=== PATIENT | male | born 1940 | race Two or more races ===

== ENCOUNTER 2017-08-29 00:25 | Inpatient (IN) | payer MEDICARE, BC ==
[~2017-08-29] VITALS: Ht 185.4 cm; Wt 83.0 kg
--- NOTE | 2017-08-29 00:45 | NUR ---
PT BIB [facility] FROM [facility] WITH A C/O FEVER W/ NAUSEA AND VOMITTING. PT IS AA&O X4. PT HAS A TRACH- PORTEX 7. PT ALSO HAS A G-TUBE. PT IS WEARING A DIAPER. NO SKIN BREAKDOWN NOTED. PT IS ON THE MONITOR AND CONTINUOUS PULSE OX. 18G IV STARTED ON LFA. BLOOD AND BLOOD CULTURES X 2 DRAWN. SUPERVISOR SHOW OPERATIONS IS AT THE BEDSIDE. PT IS ON THE MONITOR AND CONTINUOUS PULSE OX.
--- NOTE | 2017-08-29 00:47 | NUR ---
EKG IN PROGRESS AT THE BEDSIDE.
--- NOTE | 2017-08-29 00:48 | NUR ---
DR. PIERCE IS AT THE BEDSIDE.
[2017-08-29] MEDS ORDERED: ONDANSETRON HCL/PF 4 MG/2 ML VIAL ONE (00:51)
[2017-08-29] MEDS ORDERED: ACETAMINOPHEN 650 MG/SUPP.RECT RC ONE ×2 (00:52→01:00)
[2017-08-29] MEDS ORDERED: ONDANSETRON HCL/PF 4 MG/2 ML VIAL IVP ONE (01:00)
[2017-08-29] MEDS ORDERED: IV NS 0.9% 1,000 ML BAG IV ONE (01:00)
[2017-08-29] MEDS ORDERED: LIDOCAINE 2% JEL UROJET 10 ML MM ONE (01:00)
[2017-08-29] MEDS ORDERED: ALBU2.5V13 IH (01:06)
[2017-08-29] MEDS ORDERED: IPRA0.2S49 NEB (01:06)
[2017-08-29 01:11] LABS: TROPONIN I 0.145 ng/mL (0.00-0.056)
--- NOTE | 2017-08-29 01:12 | NUR ---
XRAY AT BEDSIDE
[2017-08-29 01:13] LABS: HEMATOCRIT 33 % (39-51); HEMOGLOBIN 11.2 g/dL (13.5-17.5); RED BLOOD CELL COUNT(AUTO) 3.94 MIL/uL (4.5-6.0); WHITE BLOOD COUNT (AUTO) 11.9 K/uL (4.3-11.0)
[2017-08-29 01:14] LABS: BASOPHILS % (AUTO) 0.2 % (0.0-2.0); EOSINOPHILS % (AUTO) 0.1 % (0.0-6.0); INR 0.96 (0.87-1.13); LYMPHOCYTES % (AUTO) 8.4 % (20.0-44.0); MEAN CORPUSCULAR HEMOGLOBIN 28 PG (26.0-33.0); MEAN CORPUSCULAR HGB CONC 34 g/dl (31.0-36.0); MEAN CORPUSCULAR VOLUME 84 fL (80-96); NEUTROPHILS % (AUTO) 83.3 % (43.0-81.0); PLATELET COUNT (AUTO) 235 /CMM (150-450); RDW COEFFICIENT OF VARIATION 18.2 (11.5-15.0)
[2017-08-29 01:18] LABS: ALANINE AMINOTRANSFERASE 22 U/L (12-78); ALBUMIN 2.4 g/dL (3.4-5.0); ALKALINE PHOSPHATASE 70 U/L (46-116); ASPARTATE AMINOTRANSFERASE 11 U/L (15-37); BILIRUBIN,DIRECT 0.3 mg/dL (0.0-0.2); BILIRUBIN,TOTAL 1.1 mg/dL (0.2-1.0); CALCIUM, SERUM 8.3 mg/dL (8.5-10.1); CARBON DIOXIDE 27 mmol/L (21-32); CHLORIDE 99 mmol/L (98-107); CREATININE 0.9 mg/dL (0.6-1.3); GLUCOSE 101 mg/dL (74-106); POTASSIUM 3.4 mmol/L (3.5-5.1); SODIUM SERUM 135 mmol/L (136-145); UREA NITROGEN, BLOOD 12 mg/dL (7-18)
[2017-08-29] MEDS ORDERED: DOCU-141 GT (01:23)
[2017-08-29] MEDS ORDERED: DOXA4TAB3 PO (01:23)
[2017-08-29] MEDS ORDERED: LEVE500T20 GT (01:23)
[2017-08-29] MEDS ORDERED: ALEN70TA3 GT (01:23)
[2017-08-29] MEDS ORDERED: FOLI1TAB16 GT (01:23)
[2017-08-29] MEDS ORDERED: ATOR40TA GT (01:23)
[2017-08-29] MEDS ORDERED: SULF473O3 GT (01:23)
[2017-08-29] MEDS ORDERED: LEVO25TA9 GT (01:23)
[2017-08-29] MEDS ORDERED: TAMS-12 GT (01:23)
[2017-08-29] MEDS ORDERED: CRAN3875 GT (01:23)
[2017-08-29] MEDS ORDERED: TYL2T GT (01:23)
[2017-08-29] MEDS ORDERED: THIA100T13 GT (01:23)
[2017-08-29] MEDS ORDERED: ENOX40DI SUBCUT (01:23)
[2017-08-29] MEDS ORDERED: LACO200T2 GT (01:23)
[2017-08-29] MEDS ORDERED: ACET-2605 GT (01:23)
[2017-08-29] MEDS ORDERED: MULT-213 GT (01:23)
[2017-08-29] MEDS ORDERED: ASCO500C18 GT (01:23)
[2017-08-29] MEDS ORDERED: CRAN425C6 GT (01:23)
[2017-08-29] MEDS ORDERED: OMEP20TA5 GT (01:23)
[2017-08-29] MEDS ORDERED: CALC500T3 GT (01:23)
[2017-08-29] MEDS ORDERED: PRED20TA GT (01:23)
--- NOTE | 2017-08-29 01:40 | NUR ---
LAB CALLED FOR P/U
--- NOTE | 2017-08-29 01:53 | NUR ---
PT RESTING COMFORTABLY. VSS. STABLE CONDTION. NAD
[2017-08-29 02:28] LABS: APPEARANCE,URINE CLOUDY (CLEAR); BILIRUBIN,URINE NEGATIVE (NEGATIVE); BLOOD, URINE 2+ Ery/uL (NEGATIVE); COLOR,URINE YELLOW (YELLOW); KETONES,URINE NEGATIVE (NEGATIVE); LEUKOCYTE ESTERASE ,URINE 3+ (NEGATIVE); NITRITE, URINE NEGATIVE (NEGATIVE); PROTEIN,URINE TRACE mg/dl (NEGATIVE); UGLUCOSE NEGATIVE (NEGATIVE); UROBILINOGEN,URINE 0.2 EU/dL (0.2)
[2017-08-29] MEDS ORDERED: LEVOFLOXACIN 750 MG /D5W 150ML 150 ML IV ONE (02:28)
[2017-08-29] MEDS ORDERED: LEVOFLOXACIN 750 MG /D5W 150ML PIGGYBACK IV ONE (02:30)
[2017-08-29 02:37] LABS: BACTERIA,URINE Many /HPF (None Seen); SQUAMOUS EPITHELIAL CELL,UR Rare /HPF (None Seen); WBC,URINE TOO NUMEROUS TO COUN /HPF (0-3)
[2017-08-29] MEDS ORDERED: NUT.237L30 GT (03:09)
--- NOTE | 2017-08-29 03:15 | NUR ---
RN NOTES RECEIVED PATIENT'S REPORT FROM ER NURSE MISA. GOT THE PT ON GURNEY, PT IS A/O X1, CONFUSED, ON T-PIECE 5L COOL AEROSOL WITH SPO2 OF 100%, B/P- 133/56, HR-58, T-98.0. G TUBE IN PLACE, PATIENT, ASPIRATED, AUSCULTATED AND FLASHED AND GLUCERNA 1.2 STARTED @ 50ML/HR.ALL SAFETY MEASURES ARE IMPLEMENTED, BED IN LOW, LOCKED POSITION, CALL LIGHT IN REACH. WILL CONT. TO MONITOR.
[2017-08-29 04:00] VITALS: BP 133/56
[2017-08-29] MEDS ORDERED: GLUCERNA 1.2 1,000 ML BOTTLE NG PRN ×2 (04:00→10:00)
[2017-08-29] MEDS ORDERED: DOSE PER PHARMACY (MD SPECIFY MEDICATION) 1 EA XX PRN (04:00)
--- NOTE | 2017-08-29 07:00 | NUR ---
RN NOTES RECEIVED PT ON BED, A/Ox1, TRACH DEPENDENT, ON TELE SR HR IN 60'S, TOLERATING TF AT 50CC/HR WELL , NO RESIDUAL NOTED, L FA IV SITE G 18 CDI, SR UP x3, CALL LIGHT WITHIN EASY REACH, BED LOCKED AND IN LOWEST POSITION, CONTINUE TO MONITOR .
[2017-08-29 07:19] LABS: BASOPHILS % (AUTO) 0.3 % (0.0-2.0); EOSINOPHILS % (AUTO) 0.8 % (0.0-6.0); HEMATOCRIT 37 % (39-51); HEMOGLOBIN 12.4 g/dL (13.5-17.5); LYMPHOCYTES # (AUTO) 1.2 /CMM (0.8-4.8); LYMPHOCYTES % (AUTO) 12.5 % (20.0-44.0); MEAN CORPUSCULAR HEMOGLOBIN 28 PG (26.0-33.0); MEAN CORPUSCULAR HGB CONC 34 g/dl (31.0-36.0); MEAN CORPUSCULAR VOLUME 83 fL (80-96); MONOCYTES # (AUTO) 0.3 /CMM (0.1-1.30); MONOCYTES % (AUTO) 3.7 % (2.0-12.0); NEUTROPHILS # (AUTO) 7.8 /CMM (1.8-8.9); NEUTROPHILS % (AUTO) 82.7 % (43.0-81.0); PLATELET COUNT (AUTO) 191 /CMM (150-450); RDW COEFFICIENT OF VARIATION 16.6 (11.5-15.0); RED BLOOD CELL COUNT(AUTO) 4.44 MIL/uL (4.5-6.0); WHITE BLOOD COUNT (AUTO) 9.4 K/uL (4.3-11.0)
[2017-08-29 07:20] LABS: CALCIUM, SERUM 8.7 mg/dL (8.5-10.1); CARBON DIOXIDE 24 mmol/L (21-32); CHLORIDE 103 mmol/L (98-107); CREATININE 0.9 mg/dL (0.6-1.3); GLUCOSE 91 mg/dL (74-106); POTASSIUM 3.7 mmol/L (3.5-5.1); SODIUM SERUM 137 mmol/L (136-145); UREA NITROGEN, BLOOD 10 mg/dL (7-18)
[2017-08-29 07:59] LABS: TROPONIN I 0.125 ng/mL (0.00-0.056)
[2017-08-29 08:00] VITALS: BP 120/55
[2017-08-29] MEDS ORDERED: ACETAMINOPHEN 650 MG/20.3 ML UDC GT PRN (08:00)
[2017-08-29] MEDS ORDERED: ALBUTEROL FS 2.5 MG/0.5 ML VIAL.NEB IH PRN (08:00)
[2017-08-29] MEDS ORDERED: ALENDRONATE 70 MG TABLET GT SCH (08:00)
[2017-08-29] MEDS ORDERED: IPRATROPIUM NEB FS 0.5 MG/2.5 ML AMPUL.NEB NEB PRN (08:00)
[2017-08-29] MEDS: FOLIC ACID 1 MG TABLET GT SCH (08:41)
[2017-08-29] MEDS: DOCUSATE SODIUM LIQ 100 MG/10 ML UDC GT SCH ×2 (08:41→16:14)
[2017-08-29] MEDS: CALCIUM CARBONATE (1250) 500 MG TABLET GT SCH (08:42)
[2017-08-29] MEDS: predniSONE 10 MG TABLET GT SCH (08:42)
[2017-08-29] MEDS: LEVOTHYROXINE SODIUM 25 MCG TABLET GT SCH (08:42)
[2017-08-29] MEDS: PANTOPRAZOLE 40 MG/PACK PACK GT SCH (08:42)
[2017-08-29] MEDS: LEVETIRACETAM SOL (5 ML) 100 MG/ML UDC GT SCH ×2 (08:42→20:15)
[2017-08-29] MEDS: ASCORBIC ACID 500 MG TABLET GT SCH ×2 (08:43→16:14)
[2017-08-29] MEDS: LACOSAMIDE 50 MG TABLET GT SCH ×2 (08:43→20:15)
[2017-08-29] MEDS: DOXAZOSIN MESYLATE (4 MG) 4 MG TABLET GT SCH (08:43)
[2017-08-29] MEDS: ENOXAPARIN SODIUM 40 MG/0.4 ML DISP.SYRIN SQ SCH (08:46)
[2017-08-29] MEDS: THIAMINE HCL 100 MG TABLET GT SCH (08:48)
[2017-08-29] MEDS ORDERED: Medication Not On Formulary EA (Cranberry Extract (Cranberry) 425 MG) GT SCH (09:00)
[2017-08-29] MEDS ORDERED: Medication Not On Formulary EA (Cran/Vitc/Mannose/Inulin/Brom (Uti-Stat Liquid) 30 ML) GT SCH (09:00)
[2017-08-29] MEDS ORDERED: GLUCERNA 1.2 1,000 ML BOTTLE GT SCH (09:00)
[2017-08-29] MEDS ORDERED: MULTIVIT, IRON, MIN NO. 8, FA 1 TAB PO SCH (09:00)
--- NOTE | 2017-08-29 09:05 | NUR ---
WOUND CARE CONSULT: PT INCONTINENT OF URINE. RECOMMENDATIONS MADE FOR SKIN PROTECTION AND DISCUSSED WITH NURSING STAFF. WILL SEE PRN. GIFFORD IN AGREEMENT WITH PLAN OF CARE. Addendum: 08/29/17 at 0906 by FORD COY WNDNU Amended: Links added.
[2017-08-29] MEDS ORDERED: Z GUARD REMEDY 2 OZ OINT TP PRN (09:30)
[2017-08-29] MEDS ORDERED: GLUCERNA 1.2 1,000 ML BOTTLE GT PRN (10:12)
[2017-08-29 11:21] LABS: LYMPHOCYTES % (MANUAL) 14 % (16-48); MONOCYTES % (MANUAL) 3 % (0-11.0); NEUTROPHILS % (MANUAL) 83 (42-76)
[2017-08-29] MEDS: Z GUARD REMEDY 2 OZ OINT TP SCH (11:57)
[2017-08-29 12:00] VITALS: BP_SYST 120; BP_SYST 133; BP_DIAS 46; BP_DIAS 55
[2017-08-29] MEDS: CARVEDILOL 3.125 MG TABLET PO SCH ×2 (12:00→20:15)
[2017-08-29] MEDS ORDERED: ASPIRIN 81 MG TAB.CHEW PO SCH (12:00)
[2017-08-29 16:00] VITALS: BP 114/55
--- NOTE | 2017-08-29 17:17 | NUR ---
PT PLACED ON TRACH COLLAR W/ COOL AEROSOL SETUP IN AM. ORDERS FOR TRACH CAP AND PMV DURING MEAL RECEIVED. NO RESP DISTRESS NOTED, PT AWAKE, SOMEWHAT CONFUSED, SX'ED PRN, VITAL STABLE
--- NOTE | 2017-08-29 18:33 | NUR ---
RN NOTES GT CLAMPED , PT TOLERATING REGULAR FOOD WELL. L FA IV SITE CDI, SR UP x2, CALL LIGHT WITHIN EASY REACH, BED LOCKED AND IN LOWEST POSITION, WILL ENDOSE TO MACHINE HOSE CUTTER NURSE FOR URIEL .
[2017-08-29 20:00] VITALS: BP 117/48
--- NOTE | 2017-08-29 20:00 | NUR ---
RN INITIAL NOTES RECEIVED PT AWAKE ON BED, A/O X3, ON 3L NASAL CANNULA SATURATING WELL, NO S/S OF RESP DISTRESS. PT HAS A TRACH PORTEX 7, CAPPED, SITE IS CDI. CURRENTLY SR ON THE MONITOR, HR 60'S. ON DIAPERS ONLY. PEG IS CLAMPED, INTACT. LEFT FOREARM 18G, FLUSHED AND PATENT, NO S/S OF INFILTRATION/INFECTION, DRESSING CDI. BED LOW AND LOCKED, SIDERAILS UP, CALL LIGHT WITHIN REACH. WILL MONITOR
--- NOTE | 2017-08-29 20:10 | NUR ---
RECEIVED PT TRACHED CAP PTX 7. PT IS AWAKE AND ALERT. PT ON COOL AEROSOL, SWITCHED TO 3L NC. PT COMPLAINING ABOUT THE AEROSOL NOISE. RN NOTIFIED. NO SOB. WILL CONTINUE TO MONITOR.
[2017-08-29] MEDS: ATORVASTATIN 40 MG TABLET GT SCH (21:22)
[2017-08-29] MEDS: LEVOFLOXACIN 750 MG /D5W 150ML 150 ML IV SCH (21:22)
[2017-08-29] MEDS ORDERED: TAMSULOSIN 0.4 MG CAP.SR.24H GT SCH (22:00)
[2017-08-29] MEDS ORDERED: DOXAZOSIN MESYLATE (1 MG) 1 MG TABLET GT SCH (22:00)
[2017-08-30] VITALS: BP 117/55
[2017-08-30 04:00] VITALS: BP 128/58
--- NOTE | 2017-08-30 06:30 | NUR ---
RN CLOSING NOTES PT REMAINS STABLE OF THE MOMENT. ALL DUE MEDS GIVEN, AM CARE PROVIDED. WILL ENDORSE URIEL TO AM RN
--- NOTE | 2017-08-30 07:15 | NUR ---
TELE/RN INITIAL NOTES RECEIVED PT IN BED, A/OX2. NO C/O PAIN AT THIS TIME. ON 3L O2 VIA NC. TOLERATING WELL. NO SOB NOTED. WITH INTACT TRACH PORTEX #7. SR ON TELEMONITOR. AFEBRILE. WITH INTACT CONDOM CATH. LFA SL INTACT. WITH NO SIGNS OF INFECTION NOTED. HOB ELEVATED. SAFETY MEASURES AND ASPIRATION PRECAUTION IN PLACED. CALL LIGHT WITHIN REACH. WILL CONT TO MONITOR Addendum: 08/30/17 at 1026 by BJORN OSBORN RN ADD: GT CLAMPED, INTACT, PATENT AND IN PLACED. NO RESIDUE NOTED.
[2017-08-30 08:00] VITALS: BP 127/68
[2017-08-30] MEDS: ALENDRONATE 10 MG TABLET GT SCH (08:21)
[2017-08-30] MEDS: DOCUSATE SODIUM LIQ 100 MG/10 ML UDC GT SCH ×2 (08:53→16:54)
[2017-08-30] MEDS: THIAMINE HCL 100 MG TABLET GT SCH (08:53)
[2017-08-30] MEDS: CALCIUM CARBONATE (1250) 500 MG TABLET GT SCH (08:53)
[2017-08-30] MEDS: PANTOPRAZOLE 40 MG/PACK PACK GT SCH (08:53)
[2017-08-30] MEDS: LEVETIRACETAM SOL (5 ML) 100 MG/ML UDC GT SCH ×2 (08:53→20:32)
[2017-08-30] MEDS: FOLIC ACID 1 MG TABLET GT SCH (08:54)
[2017-08-30] MEDS: predniSONE 10 MG TABLET GT SCH (08:54)
[2017-08-30] MEDS: LEVOTHYROXINE SODIUM 25 MCG TABLET GT SCH (08:54)
[2017-08-30] MEDS: ASCORBIC ACID 500 MG TABLET GT SCH ×2 (08:54→16:54)
[2017-08-30] MEDS: ASPIRIN 81 MG TAB.CHEW GT SCH (08:54)
[2017-08-30] MEDS: MULTIVIT, IRON, MIN NO. 8, FA 1 TAB GT SCH (08:54)
[2017-08-30] MEDS: LACOSAMIDE 50 MG TABLET GT SCH ×2 (08:55→20:32)
[2017-08-30] MEDS: CARVEDILOL 3.125 MG TABLET PO SCH ×2 (08:55→20:33)
[2017-08-30] MEDS: Z GUARD REMEDY 2 OZ OINT TP SCH (08:56)
[2017-08-30] MEDS: DOXAZOSIN MESYLATE (4 MG) 4 MG TABLET GT SCH (08:56)
[2017-08-30] MEDS: ENOXAPARIN SODIUM 40 MG/0.4 ML DISP.SYRIN SQ SCH (08:59)
[2017-08-30] MEDS ORDERED: SULFAMEHOX/TRIMETH 200-40MG/ 5 ML UDC GT SCH (09:00)
[2017-08-30 12:00] VITALS: BP 121/55
[2017-08-30 16:00] VITALS: BP 111/59
--- NOTE | 2017-08-30 19:05 | NUR ---
RN NOTES PT REMAINED IN STABLE CONDITION. NO ACUTE DISTRESS NOTED THROUGHOUT SHIFT. SAFETY MEASURES AND ASPIRATION PRECAUTION OBSERVED AT ALL TIMES. ALL NEEDS ANTICIPATED. ENDORSED TO PM SHIFT NURSE FOR URIEL
[2017-08-30 20:00] VITALS: BP 114/55
[2017-08-30] MEDS: LEVOFLOXACIN 750 MG /D5W 150ML 150 ML IV SCH (21:12)
[2017-08-30] MEDS: ATORVASTATIN 40 MG TABLET GT SCH (21:12)
[2017-08-31 04:00] VITALS: BP 128/66
--- NOTE | 2017-08-31 07:16 | NUR ---
MS RN NOTES: RECEIVED PT ON BED ASLEEP WITH NO APPARENT DISTRESS NOTED. NO COMPLAINTS OF PAIN OR DISCOMFORT. BREATHING EVEN AND UNLABORED WITH NORMAL RESPIRATIONS. GT CLAMPED, INTACT AND PATENT. NO RESIDUE NOTED AT THIS TIME. KEPT CLEAN, DRY AND COMFORTABLE. SIDE RAILS UP X2. BED ALARM ON. BED LOCKED AND IN LOWEST POSITION. CALL LIGHT WITHIN REACH. WILL CONTINUE TO MONITOR PT.
[2017-08-31 08:00] VITALS: BP 133/53
[2017-08-31] MEDS: THIAMINE HCL 100 MG TABLET GT SCH (08:27)
[2017-08-31] MEDS: LEVETIRACETAM SOL (5 ML) 100 MG/ML UDC GT SCH ×2 (08:27→21:47)
[2017-08-31] MEDS: predniSONE 10 MG TABLET GT SCH (08:27)
[2017-08-31] MEDS: ASCORBIC ACID 500 MG TABLET GT SCH ×2 (08:27→16:25)
[2017-08-31] MEDS: PANTOPRAZOLE 40 MG/PACK PACK GT SCH (08:27)
[2017-08-31] MEDS: CALCIUM CARBONATE (1250) 500 MG TABLET GT SCH (08:28)
[2017-08-31] MEDS: DOCUSATE SODIUM LIQ 100 MG/10 ML UDC GT SCH ×2 (08:28→16:25)
[2017-08-31] MEDS: DOXAZOSIN MESYLATE (4 MG) 4 MG TABLET GT SCH (08:28)
[2017-08-31] MEDS: ASPIRIN 81 MG TAB.CHEW GT SCH (08:28)
[2017-08-31] MEDS: LACOSAMIDE 50 MG TABLET GT SCH ×2 (08:28→21:47)
[2017-08-31] MEDS: ALENDRONATE 10 MG TABLET GT SCH (08:28)
[2017-08-31] MEDS: MULTIVIT, IRON, MIN NO. 8, FA 1 TAB GT SCH (08:28)
[2017-08-31] MEDS: CARVEDILOL 3.125 MG TABLET PO SCH ×2 (08:30→21:48)
[2017-08-31] MEDS: FOLIC ACID 1 MG TABLET GT SCH (08:30)
[2017-08-31] MEDS: LEVOTHYROXINE SODIUM 25 MCG TABLET GT SCH (08:35)
[2017-08-31] MEDS: ENOXAPARIN SODIUM 40 MG/0.4 ML DISP.SYRIN SQ SCH (08:46)
[2017-08-31] MEDS: Z GUARD REMEDY 2 OZ OINT TP SCH (08:53)
--- NOTE | 2017-08-31 13:55 | NUR ---
MS RN NOTES: RECEIVED A CALL FROM PHARMACY THAT PATIENT IS RESISTANT TO THE ATB THAT HE WAS RECEIVING. [employer] ATTENDANT DR. FERRIS PAGED, STILL AWAITING FOR CALL BACK.
[2017-08-31] MEDS ORDERED: DOSING PER PHARMACY-AMIKACI IV XX PRN (14:00)
[2017-08-31 14:47] LABS: CALCIUM, SERUM 8.2 mg/dL (8.5-10.1); CARBON DIOXIDE 25 mmol/L (21-32); CHLORIDE 101 mmol/L (98-107); CREATININE 0.9 mg/dL (0.6-1.3); GLUCOSE 245 mg/dL (74-106); POTASSIUM 4.1 mmol/L (3.5-5.1); SODIUM SERUM 134 mmol/L (136-145); UREA NITROGEN, BLOOD 11 mg/dL (7-18)
[2017-08-31] MEDS ORDERED: FEE PK DOSING 1 MIN EA MC ONE (15:49)
[2017-08-31 16:00] VITALS: BP 124/55
[2017-08-31] MEDS: AMIKACIN 400 MG in IV D5W 100 ML IV SCH (17:33)
--- NOTE | 2017-08-31 19:30 | NUR ---
MS RN NOTES: PATIENT ON BED ALERT AND AWAKE, NO ACUTE DISTRESS NOTED. NO COMPLAINTS OF PAIN OR DISCOMFORT AT THIS TIME. ON 3LPM NC, NO SOB NOTED. SATURATING WELL. GT CLAMPED, NO RESIDUAL NOTED. CALL LIGHT PLACED WITHIN REACH. KEPT CLEAN, DRY AND COMFORTABLE. WILL ENDORSE TO CALENDERER FOR URIEL.
[2017-08-31 20:00] VITALS: BP 141/57
--- NOTE | 2017-08-31 20:00 | NUR ---
RN NOTES RECEIVED PATIENT AWAKE IN BED WITH NO DISTRESS NOTED. BREATHING EVEN AND UNLABORED. ON 02 VIA NASAL CANNULA AT 3LPM, TOLERATING WELL. VITAL SIGNS WNL. ALERT AND ORIENTED. VERBALLY ABLE TO COMMUNICATE NEEDS. NO COMPLAINT OF PAIN OR DISCOMFORT. WILL CONTINUE TO MONITOR.
[2017-08-31] MEDS: ATORVASTATIN 40 MG TABLET GT SCH (21:47)
[2017-09-01 04:00] VITALS: BP 119/64
[2017-09-01] MEDS: AMIKACIN 400 MG in IV D5W 100 ML IV SCH ×2 (06:30→17:00)
--- NOTE | 2017-09-01 07:10 | NUR ---
MS/RN INITIAL NOTES RECEIVED PT IN BED, A/O X2, ON 3L O2 VIA NC, TOLERATING WELL, NO SOB NOTED. WITH CAPPED TRACH PORTEX 7. WITH INTACT LFA G18 SL, NO SIGNS OF INFECTION NOTED. NO C/O PAIN AT THIS TIME. GT CLAMPED AND IN PLACED. SAFETY MEASURES AND ASPIRATION PRECAUTION IN PLACED. CALL LIGHT WITHIN REACH. WILL CONT TO MONITOR.
[2017-09-01 07:14] LABS: CALCIUM, SERUM 8.7 mg/dL (8.5-10.1); CARBON DIOXIDE 25 mmol/L (21-32); CHLORIDE 105 mmol/L (98-107); CREATININE 0.7 mg/dL (0.6-1.3); GLUCOSE 101 mg/dL (74-106); POTASSIUM 3.9 mmol/L (3.5-5.1); SODIUM SERUM 139 mmol/L (136-145); UREA NITROGEN, BLOOD 12 mg/dL (7-18)
--- NOTE | 2017-09-01 07:21 | NUR ---
RN CLOSING NOTES NO SIGNIFICANT CHANGE OF CONDITION. NO DISTRESS NOTED. NO COMPLAINT OF PAIN OR DISCOMFORT. VITAL SIGNS WNL. KEPT CLEAN AND DRY. WILL ENDORSE TO AM SHIFT FOR CONTINUITY OF CARE.
[2017-09-01] MEDS: ALENDRONATE 10 MG TABLET GT SCH (07:50)
[2017-09-01 08:00] VITALS: BP 149/60
[2017-09-01] MEDS: LEVETIRACETAM SOL (5 ML) 100 MG/ML UDC GT SCH ×2 (08:56→20:53)
[2017-09-01] MEDS: DOXAZOSIN MESYLATE (4 MG) 4 MG TABLET GT SCH (08:56)
[2017-09-01] MEDS: DOCUSATE SODIUM LIQ 100 MG/10 ML UDC GT SCH ×2 (08:57→16:40)
[2017-09-01] MEDS: CARVEDILOL 3.125 MG TABLET PO SCH ×2 (08:57→20:52)
[2017-09-01] MEDS: PANTOPRAZOLE 40 MG/PACK PACK GT SCH (08:57)
[2017-09-01] MEDS: LEVOTHYROXINE SODIUM 25 MCG TABLET GT SCH (08:58)
[2017-09-01] MEDS: MULTIVIT, IRON, MIN NO. 8, FA 1 TAB GT SCH (08:58)
[2017-09-01] MEDS: THIAMINE HCL 100 MG TABLET GT SCH (08:58)
[2017-09-01] MEDS: ASPIRIN 81 MG TAB.CHEW GT SCH (08:58)
[2017-09-01] MEDS: predniSONE 10 MG TABLET GT SCH (08:58)
[2017-09-01] MEDS: ASCORBIC ACID 500 MG TABLET GT SCH ×2 (08:58→16:40)
[2017-09-01] MEDS: LACOSAMIDE 50 MG TABLET GT SCH ×2 (08:58→20:53)
[2017-09-01] MEDS: FOLIC ACID 1 MG TABLET GT SCH (08:58)
[2017-09-01] MEDS: ENOXAPARIN SODIUM 40 MG/0.4 ML DISP.SYRIN SQ SCH (08:59)
[2017-09-01] MEDS: Z GUARD REMEDY 2 OZ OINT TP SCH (09:00)
[2017-09-01] MEDS: CALCIUM CARBONATE (1250) 500 MG TABLET GT SCH (09:03)
[2017-09-01 16:00] VITALS: BP 113/51
--- NOTE | 2017-09-01 19:15 | NUR ---
RN NOTES PT IN STABLE CONDITION. NO ACUTE DISTRESS NOTED THROUGHOUT SHIFT. NO C/O PAIN. SAFETY MEASURES AND ASPIRATION PRECAUTION OBSERVED AT ALL TIMES. ALL NEEDS ANTICIPATED. ENDORSED TO PM SHIFT NURSE FOR URIEL
[2017-09-01 20:00] VITALS: BP 114/62
--- NOTE | 2017-09-01 20:00 | NUR ---
MS/RN OPENING NOTES' PATIENT IN BED, ALERT, OREIENTED X2, ABLE TO VERBALIZE NEEDS, RESPIRATIONS EVEN AND UNLABORED, SKIN INTACT AND DRY, ON OXYGEN AT 3L, FOR COMFORT. REQUIRE MONITORING FOR SAFETY, CALL LIGHTS WITHIN REACH, DISCUSSED PLAN OF CARE, VERBALIZE WANT TO GET PT FOR EVALUATION , PATIENT FOR D/C ZULAY AM, , DISCUSSED WITH FAMILY MEMEBER CONCERN, REPORTED TO CHARGE NURSE, WILL FOLLOW UP IN AM.CAALL LIGHTS WITHIN REACH. BED IN LOCK POSITION.
[2017-09-01] MEDS: ATORVASTATIN 40 MG TABLET GT SCH (20:56)
[2017-09-02 00:41] VITALS: BP 127/68
[2017-09-02 04:00] VITALS: BP 114/62
[2017-09-02] MEDS: AMIKACIN 400 MG in IV D5W 100 ML IV SCH (04:14)
--- NOTE | 2017-09-02 06:26 | NUR ---
MS/RN CLOSING NOTES PATIENT IN BED, ABLE TO SLEEP DURING THE NIGHT, RESPIRATIONS EVEN AND UNLABORED WITH 3L OXYGEN VIA NC, ON CAPPED, TRAECH, COOL AEROSOL. COOPERATIVE TO CARE, ALERT X2. SKIN WARM TO TOUCH, REPOSITION AND KEP SKIN INTACT AND DRY, PROVIDE AND OFFERED FLUIDS, GTUBE PATENT, MEDICATION GIVEN VIA GTUBE, NO PAIN OBSERVE OR VERBALIZED, IV ANTIBIOTIC ADMINISTERED W/ NO S/S OF ADVERSE REACTION. WILL MONITOR. WILL ENDORSE TO AM RN FOR URIEL.
[2017-09-02 07:01] LABS: CALCIUM, SERUM 8.7 mg/dL (8.5-10.1); CARBON DIOXIDE 27 mmol/L (21-32); CHLORIDE 106 mmol/L (98-107); CREATININE 0.8 mg/dL (0.6-1.3); GLUCOSE 105 mg/dL (74-106); POTASSIUM 3.7 mmol/L (3.5-5.1); SODIUM SERUM 140 mmol/L (136-145); UREA NITROGEN, BLOOD 12 mg/dL (7-18)
--- NOTE | 2017-09-02 07:15 | NUR ---
RN OPENING NOTES RECEIVED PT. IN BED AWAKE, A&OX2. REORIENTED PT. TO PLACE. BREATHING UNLABORED ON OXYGEN AT 3L/MIN VIA NASAL CANNULA. PT. HAS A TRACHEOSTOMY THAT IS CUFFED PORTEX SIZE 7. NO S/S OF ACUTE DISTRESS. IV ACCESS ON LEFT FOREARM IS INTACT. G TUBE IS INTACT, NO S/S OF DRAINAGE. BED IS IN LOWEST, AND LOCKED POSITION. 2 SIDE RAILS UP, AND INSTRUCTED PT. TO USE CALL LIGHT FOR ASSISTANCE. ALL NEEDS MET AT THIS TIME. WILL CONTINUE TO ASSESS AND MONITOR.
[2017-09-02 08:00] VITALS: BP 164/67
[2017-09-02] MEDS: ALENDRONATE 10 MG TABLET GT SCH (09:26)
[2017-09-02] MEDS: PANTOPRAZOLE 40 MG/PACK PACK GT SCH (10:08)
[2017-09-02] MEDS: LEVETIRACETAM SOL (5 ML) 100 MG/ML UDC GT SCH (10:08)
[2017-09-02] MEDS: LEVOTHYROXINE SODIUM 25 MCG TABLET GT SCH (10:09)
[2017-09-02] MEDS: predniSONE 10 MG TABLET GT SCH (10:10)
[2017-09-02] MEDS: CARVEDILOL 3.125 MG TABLET PO SCH (10:12)
[2017-09-02] MEDS: DOXAZOSIN MESYLATE (4 MG) 4 MG TABLET GT SCH (10:13)
[2017-09-02] MEDS: ASPIRIN 81 MG TAB.CHEW GT SCH (10:13)
[2017-09-02] MEDS: LACOSAMIDE 50 MG TABLET GT SCH (10:13)
[2017-09-02] MEDS: Z GUARD REMEDY 2 OZ OINT TP SCH (10:14)
[2017-09-02] MEDS: ENOXAPARIN SODIUM 40 MG/0.4 ML DISP.SYRIN SQ SCH (10:16)
[2017-09-02] MEDS: ASCORBIC ACID 500 MG TABLET GT SCH (11:16)
[2017-09-02] MEDS: MULTIVIT, IRON, MIN NO. 8, FA 1 TAB GT SCH (11:16)
[2017-09-02] MEDS: CALCIUM CARBONATE (1250) 500 MG TABLET GT SCH (11:16)
[2017-09-02] MEDS: THIAMINE HCL 100 MG TABLET GT SCH (11:16)
[2017-09-02] MEDS: FOLIC ACID 1 MG TABLET GT SCH (11:17)
[2017-09-02] MEDS: DOCUSATE SODIUM LIQ 100 MG/10 ML UDC GT SCH (11:17)
[2017-09-02 12:00] VITALS: BP 139/57
--- NOTE | 2017-09-02 14:20 | NUR ---
RN NOTES REPORT WAS GIVEN VIA PHONE TO NURSE BERNIE FROM [facility]. BERNIE REQUESTED TO KEEP THE LEFT PERIPHERAL IV LINE TO CONTINUE ANTIBIOTICS, PER CHARGE NURSE PT. CAN LEAVE WITH PERIPHERAL IV INTACT.
--- NOTE | 2017-09-02 16:20 | NUR ---
CRISIS THERAPIST PT. LEFT IN STABLE CONDITION BY AMBULANCE, WITH FAMILY ALONGSIDE. PT. LEFT A&OX2. PT. HAD 1 BOWEL MOVEMENT BEFORE DISCHARGE. PT. LEFT BREATHING ON OXYGEN 3L/MIN VIA NASAL CANNULA. DISCHARGE INSTRUCTIONS, WITH EDUCATION WAS PROVIDED TO PT.'S . DISCHARGE PAPERS WERE SIGNED. REPORT ABOUT PT.'S MEDICATIONS WAS GIVEN TO NURSE BERNIE AT [facility]. IV ON FOREARM GAUGE 18 LEFT INTACT AND PATENT WITH SALINE FLUSH. ID BAND WAS REMOVED. BELONGINGS LIST WAS CHECKED, AND SIGNED. REPORT WAS GIVEN TO AMBULANCE CREW AND LEFT WITH DISCHARGE PACKET. ALL QUESTIONS ANSWERED.
== END 2017-09-02 14:15 | DRG 871 ==
LOC: ER 00:27 → TELE1 02:56 → MEDSG1 08-30 14:40
PROVIDERS: ADMIT Internal Medicine Nephrology; ATTEND Internal Medicine Nephrology
DX: A41.9 Sepsis, unspecified organism (principal); G93.40 Encephalopathy, unspecified; I21.A1 Myocardial infarction type 2; N39.0 Urinary tract infection, site not specified; J98.11 Atelectasis; C91.10 Chronic lymphocytic leukemia of B-cell type not having achieved remission; J96.11 Chronic respiratory failure with hypoxia; G40.909 Epilepsy, unspecified, not intractable, without status epilepticus; N40.0 Benign prostatic hyperplasia without lower urinary tract symptoms; E11.9 Type 2 diabetes mellitus without complications; Z87.440 Personal history of urinary (tract) infections; Z93.1 Gastrostomy status; Z88.1 Allergy status to other antibiotic agents; Z79.899 Other long term (current) drug therapy; R13.10 Dysphagia, unspecified; E03.9 Hypothyroidism, unspecified; B96.89 Other specified bacterial agents as the cause of diseases classified elsewhere
CPT/HCPCS: 36415; 71045-TC; 80048-TC; 80076-TC; 80150; 81000-TC; 83605-TC; 84484-TC; 85025-TC; 85730-TC; 87040-TC; 87081-TC; 87086-TC; 87186-TC; 93307-TC; 94640-TC; 94664-TC; 94799-TC; A4349; A4606; A6403; J0278; J1650; J1953; J1956; J2405; J3490; J7030; J7050; J7060; Z7610